=== PATIENT | male | born 1985 | race Caucasian/White ===

== ENCOUNTER 2017-04-18 09:27 | Emergency (ER) | payer MEDICAID ==
[~2017-04-18] VITALS: Ht 177.8 cm; Wt 78.0 kg
[~2017-04-18 09:27] MED LIST: ABAC1TAB14 PO; BUPR150T6 PO; HYDR50CA2 PO; RISP4TAB2 PO; TRAZ100T15 PO
[2017-04-18 09:40] VITALS: BP 128/88
[2017-04-18] MEDS ORDERED: CEFTRIAXONE 250 MG IM ONE (11:00)
[2017-04-18] MEDS ORDERED: AZITHROMYCIN 500 MG TABLET PO ONE (11:00)
[2017-04-18] MEDS ORDERED: CEFTRIAXONE 250 MG ONE (11:10)
[2017-04-18] MEDS ORDERED: LIDOCAINE 1%, 20ML ONE (11:11)
[2017-04-18] MEDS ORDERED: AZITHROMYCIN 500 MG TABLET ONE (11:11)
== END 2017-04-18 11:45 | disposition home or self-care (01) ==
LOC: ED 10:06
DX: N34.1 Nonspecific urethritis (principal); R05 Cough
CPT/HCPCS: 81001; 87086; 96372; 99284; J0696; 87491; 87591

== ENCOUNTER 2017-09-05 14:28 | Emergency (ER) | payer MEDICAID ==
[~2017-09-05] VITALS: Ht 177.8 cm; Wt 77.2 kg
[2017-09-05 14:30] VITALS: BP 125/92
== END 2017-09-05 15:05 | disposition home or self-care (01) ==
LOC: ED 14:50
DX: L02.413 Cutaneous abscess of right upper limb (principal); F15.10 Other stimulant abuse, uncomplicated
CPT/HCPCS: 10060

== ENCOUNTER 2018-07-31 16:24 | Emergency (ER) | payer MEDICAID ==
[~2018-07-31] VITALS: Ht 177.8 cm; Wt 82.2 kg
[~2018-07-31 16:24] MED LIST changes: +TRAZ-137 PO; -TRAZ100T15 PO
[2018-07-31 17:14] VITALS: BP 145/103
== END 2018-07-31 17:17 | disposition home or self-care (01) ==
LOC: ED 16:45
DX: K04.7 Periapical abscess without sinus (principal); I10 Essential (primary) hypertension; Z21 Asymptomatic human immunodeficiency virus [HIV] infection status; F17.200 Nicotine dependence, unspecified, uncomplicated
CPT/HCPCS: 99283

== ENCOUNTER 2019-06-19 22:51 | Emergency (ER) | payer MEDICAID ==
[~2019-06-19] VITALS: Ht 177.8 cm; Wt 80.7 kg
[2019-06-19 22:58] VITALS: BP 143/100
[2019-06-19] MEDS ORDERED: AZITHROMYCIN 500 MG TABLET ONE (23:23)
[2019-06-19] MEDS ORDERED: CEFTRIAXONE 250 MG ONE (23:23)
[2019-06-19] MEDS ORDERED: CEFTRIAXONE 250 MG IM ONE (23:30)
[2019-06-19] MEDS ORDERED: AZITHROMYCIN 500 MG TABLET PO ONE (23:30)
== END 2019-06-19 23:33 | disposition home or self-care (01) ==
LOC: ED 23:29
DX: A56.01 Chlamydial cystitis and urethritis (principal); A54.01 Gonococcal cystitis and urethritis, unspecified; F15.10 Other stimulant abuse, uncomplicated; F17.210 Nicotine dependence, cigarettes, uncomplicated
CPT/HCPCS: 87491; 87591; 96372; 99283; J0696

== ENCOUNTER 2020-01-28 14:06 | Emergency (ER) | payer MEDICAID ==
[~2020-01-28] VITALS: Ht 177.8 cm; Wt 93.3 kg
[~2020-01-28 14:06] MED LIST changes: -TRAZ-137 PO; +TRAZ-175 PO
[2020-01-28 14:09] VITALS: BP 139/96
--- NOTE | 2020-01-28 14:33 | NUR ---
LEFT ANKLE SWELLING AND PAIN FOR 2 WEEKS, UNKNOWN ETIOLOGY
[2020-01-28 14:52] LABS: BASOPHILS # (AUTO) 0.07 x10^3/uL (0-0.1); BASOPHILS % (AUTO) 1 % (0-1); EOSINOPHILS # (AUTO) 0.07 x10^3/uL (0-0.4); EOSINOPHILS % (AUTO) 1 % (1-7); LYMPHOCYTES # (AUTO) 2.94 x10^3/uL (1-3.4); LYMPHOCYTES % (AUTO) 31 % (22-44); MD NO; MEAN CORPUSCULAR HEMOGLOBIN 31.3 pg (27.5-34.5); MEAN CORPUSCULAR HGB CONC 33.6 g/dL (33.2-36.2); MEAN CORPUSCULAR VOLUME 93.2 fL (81-97); MEAN PLATELET VOLUME 6.7 fL (7.4-10.4); MONOCYTES # (AUTO) 0.65 x10^3/uL (0.2-0.8); MONOCYTES % (AUTO) 7 % (2-9); NEUTROPHILS # (AUTO) 5.73 x10^3/uL (1.8-6.8); NEUTROPHILS % (AUTO) 61 % (42-75); PLATELET COUNT 336 x10^3/uL (130-400); RED BLOOD COUNT 5.09 x10^6/uL (4.38-5.82); RED CELL DISTRIBUTION WIDTH 14.6 % (9.4-14.8)
[2020-01-28] MEDS ORDERED: KETOROLAC 30 MG/1 ML IM ONE (15:00)
[2020-01-28] MEDS ORDERED: KETOROLAC 30 MG/1 ML ONE (15:12)
== END 2020-01-28 15:35 ==
LOC: ED 15:26
DX: M65.872 Other synovitis and tenosynovitis, left ankle and foot (principal); F17.200 Nicotine dependence, unspecified, uncomplicated; Z21 Asymptomatic human immunodeficiency virus [HIV] infection status
CPT/HCPCS: 36415; 73610; 84550; 85025; 96372; 99284; J1885

== ENCOUNTER 2020-04-22 13:54 | Emergency (ER) | payer MEDICAID ==
[~2020-04-22] VITALS: Ht 177.8 cm; Wt 85.3 kg
[2020-04-22 14:31] VITALS: BP 129/72
--- NOTE | 2020-04-22 15:23 | NUR ---
Jordon arguello in [facility] - 04/22/20 at 1539 by BETY PT BACK FROM IR,
--- NOTE | 2020-04-22 15:39 | NUR ---
pt left w out dc papers. saw pt
== END 2020-04-22 15:40 | disposition home or self-care (01) ==
LOC: ED 15:10
DX: L02.414 Cutaneous abscess of left upper limb (principal); I10 Essential (primary) hypertension
CPT/HCPCS: 99281

== ENCOUNTER 2020-09-10 22:21 | Emergency (ER) | payer MEDICAID ==
[~2020-09-10] VITALS: Ht 177.8 cm; Wt 83.0 kg
[2020-09-10 22:35] VITALS: BP 132/92
--- NOTE | 2020-09-10 22:40 | NUR ---
pt ambulates to room 2, changes to gown. right ac area with small under the skin nodule, no redness at that location seen however redness and fresh track nascimento to other ac veins. reports pain. says he is worried about mrsa because he has been injecting meth with dirty needles. hx hiv on tx.
[2020-09-10] MEDS ORDERED: DIPH,PERTUSS(ACELL),TET VAC/PF 0.5 ML IM-VACC ONE ×2 (23:00→23:22)
== END 2020-09-10 23:51 | disposition home or self-care (01) ==
LOC: ED 23:03
DX: I80.8 Phlebitis and thrombophlebitis of other sites (principal); G89.11 Acute pain due to trauma; M79.631 Pain in right forearm; F10.10 Alcohol abuse, uncomplicated; F15.10 Other stimulant abuse, uncomplicated; I10 Essential (primary) hypertension; Y90.9 Presence of alcohol in blood, level not specified
CPT/HCPCS: 90471; 90715; 99284

== ENCOUNTER 2021-01-19 15:04 | Emergency (ER) | payer MEDICAID ==
[~2021-01-19] VITALS: Ht 177.8 cm; Wt 79.0 kg
[~2021-01-19 15:04] MED LIST changes: +BUPR150T22 PO; -BUPR150T6 PO; -RISP4TAB2 PO; +RISP4TAB66 PO
--- NOTE | 2021-01-19 15:40 | NUR ---
PT WALKED FROM HOME. RASHES ON NOSE, HAND AND LEG STARTED ABOUT A MONTH AGO. PT STATED HE BELIEVED HE MIGHT HAVE STAPH INFECTION WHICH LEAD TO HIM COMING TO ED.
[2021-01-19 16:18] VITALS: BP 154/107
== END 2021-01-19 16:29 | disposition home or self-care (01) ==
LOC: ED 16:00
DX: L01.01 Non-bullous impetigo (principal); L02.414 Cutaneous abscess of left upper limb; L02.413 Cutaneous abscess of right upper limb; L02.416 Cutaneous abscess of left lower limb; L02.415 Cutaneous abscess of right lower limb; I10 Essential (primary) hypertension
CPT/HCPCS: 99283

== ENCOUNTER 2021-04-08 10:55 | Inpatient (IN) | payer MEDICAID ==
[~2021-04-08] VITALS: Ht 177.8 cm; Wt 81.4 kg
--- NOTE | 2021-04-08 11:42 | NUR ---
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
[2021-04-08 12:07] LABS: MICROSCOPIC INDICATED
[2021-04-08] MEDS ORDERED: ONDANSETRON 2MG/ML, 2ML ONE (12:12)
[2021-04-08] MEDS ORDERED: MORPHINE SULFATE 4 MG/ML, 1ML ONE (12:12)
[2021-04-08] MEDS ORDERED: LORazepam 2 MG/ML, 1ML ONE (12:13)
--- NOTE | 2021-04-08 12:26 | NUR ---
PT REFUSING IV AND MEDICTIONS. PT STATES HE JUST WANTS TO FIND OUT IF HIS LIVER IS OK. MADE AWARE.
[2021-04-08] MEDS ORDERED: LORazepam 2 MG/ML, 1ML IVPush ONE (12:30)
[2021-04-08] MEDS ORDERED: SODIUM CHLORIDE FLUSH 10ML SYR IVF ONE (12:30)
[2021-04-08] MEDS ORDERED: SODIUM CHLORIDE 0.9% 1,000ML IVBOLUS ONE ×3 (12:30→14:30)
[2021-04-08] MEDS ORDERED: ONDANSETRON 2MG/ML, 2ML IVPush ONE (12:30)
[2021-04-08] MEDS ORDERED: MORPHINE SULFATE 4 MG/ML, 1ML IVPush PRN ×2 (12:30→14:00)
[2021-04-08 12:37] LABS: BASOPHILS % (AUTO) 0 % (0-1); EOSINOPHILS % (AUTO) 0 % (1-7); LYMPHOCYTES % (AUTO) 7 % (22-44); MEAN CORPUSCULAR HEMOGLOBIN 34.2 pg (27.5-34.5); MEAN CORPUSCULAR HGB CONC 34.4 g/dL (33.2-36.2); MEAN PLATELET VOLUME 6.5 fL (7.4-10.4); MONOCYTES % (AUTO) 11 % (2-9); NEUTROPHILS % (AUTO) 81 % (42-75); PLATELET COUNT 266 x10^3/uL (130-400); RED BLOOD COUNT 4.98 x10^6/uL (4.38-5.82); RED CELL DISTRIBUTION WIDTH 14.5 % (9.4-14.8)
[2021-04-08 12:49] LABS: ALANINE AMINOTRANSFERASE 105 U/L (12-78); ALBUMIN 3.9 g/dL (3.4-5.0); ANION GAP 4 mmol/L (5-15); CALCIUM 9.5 mg/dL (8.5-10.1); CHLORIDE 103 mmol/L (98-107); CREATININE 0.97 mg/dL (0.7-1.3)
[2021-04-08 12:51] LABS: ALKALINE PHOSPHATASE 101 U/L (45-117); BILIRUBIN,TOTAL 0.6 mg/dL (0.2-1.0); TOTAL PROTEIN 7.7 g/dL (6.4-8.2)
--- NOTE | 2021-04-08 13:02 | NUR ---
PATIENT AMBULATED TO BATHROOM WITH STEADY GAIT.
[2021-04-08] MEDS ORDERED: CEFTRIAXONE 1,000 MG ONE (13:10)
[2021-04-08] MEDS ORDERED: AZITHROMYCIN 250 MG TABLET ONE (13:11)
[2021-04-08 13:15] LABS: MD SCAN
--- NOTE | 2021-04-08 13:20 | NUR ---
PATIENT REQUESTING TO GO TO HIS CAR AND GRAB "SOME STUFF" AND MOVE HIS CAR. INFORMED PATIENT HE CANNOT LEAVE THE ED HE IS BEING ADMITTED TO THE HOSPITAL FOR SAFETY REASONS. PATIENT WALKED BACK TO HIS ROOM.
[2021-04-08] MEDS ORDERED: CEFTRIAXONE 1,000 MG IM ONE ×2 (13:30)
[2021-04-08] MEDS ORDERED: AZITHROMYCIN 500 MG TABLET PO ONE (13:30)
[2021-04-08] MEDS ORDERED: POLYETHYLENE GLYCOL 17 GM PACKET PO PRN (14:00)
[2021-04-08] MEDS ORDERED: PHARMACY INSTRUCTION MC PRN (14:00)
[2021-04-08] MEDS ORDERED: OXYcodone IR 5MG TABLET PO PRN (14:00)
[2021-04-08] MEDS: SODIUM CHLORIDE 0.9% 1,000 ML IV SCH (14:00)
[2021-04-08] MEDS ORDERED: VANCOMYCIN PER PHARMACY MC PRN (14:00)
[2021-04-08] MEDS ORDERED: VANCOMYCIN PMX 1GM/200ML 200 ML IV ONE (14:00)
[2021-04-08] MEDS ORDERED: ONDANSETRON 2MG/ML, 2ML IVPush PRN (14:00)
--- NOTE | 2021-04-08 14:03 | NUR ---
PATIENT CAME UP TO NURSING STATION FULLY DRESSED AND STATED HE WENT OUT TO HIS CAR AND MOVED IT. ER CARPENTER MAINTENANCE OKAY WITH PATIENT GOING BACK TO HIS ROOM AND NOT CHECKING BACK IN. PATIENT WALKED BACK TO ROOM, CONNECTED TO ALL MONITORS. DR. GUPTA AT BEDSIDE TO DISCUSS ADMISSION.
--- NOTE | 2021-04-08 14:21 | NUR ---
US TECH AT BEDSIDE. 20 GAUGE IV STARTED LEFT AC, SECOND SET OF BLOOD CULTURES DRAWN, LABELLED AND SENT TO LAB.
[2021-04-08] MEDS ORDERED: ENOXAPARIN 40 MG/0.4 ML ONE (14:27)
[2021-04-08] MEDS: PIPERACILLIN/TAZO 3.375 GM in DEXTROSE 5% 50 ML IV SCH ×2 (14:30→20:47)
[2021-04-08] MEDS: ENOXAPARIN 40 MG/0.4 ML SQ SCH (14:30)
[2021-04-08] MEDS ORDERED: LORazepam 2 MG/ML, 1ML IV PRN ×4 (15:00)
--- NOTE | 2021-04-08 15:34 | NUR ---
IV VANCOMYCIN REQUESTED FROM PHARMACY.
[2021-04-08] MEDS ORDERED: NICOTINE 21 MG/24 HR PATCH.TD24 ONE (15:49)
--- NOTE | 2021-04-08 15:54 | NUR ---
REPORT CALLED TO EMELIA BURNHAM FOR MEDICAL TELEMETRY.
[2021-04-08] MEDS: NICOTINE 21 MG/24 HR PATCH.TD24 TD SCH (15:58)
[2021-04-08] MEDS ORDERED: VANCOMYCIN 2,000 MG in SODIUM CHLORIDE 0.9% 500 ML IV ONE (16:00)
[2021-04-08] MEDS ORDERED: CHLORDIAZEPOXIDE 25 MG CAPSULE ONE (16:18)
[2021-04-08] MEDS: CHLORDIAZEPOXIDE 25 MG CAPSULE PO SCH ×2 (16:21→20:48)
--- NOTE | 2021-04-08 16:21 | NUR ---
FIRST NS BOLUS STILL RUNNING, IV IS IN BEND OF PATIENT'S ARM. EDUCATED PATIENT ON KEEPING ARM STRAIGHT SO FLUIDS CAN RUN.
[2021-04-08 16:49] VITALS: BP 152/109
--- NOTE | 2021-04-08 16:49 | NUR ---
PATIENT TRANSFERRED TO MEDICAL TELEMETRY VIA GURNEY IN STABLE CONDITION WITH BAR PORTER. ALL PATIENT BELONGINGS TAKEN TO FLOOR WITH PATIENT.
[2021-04-08] MEDS ORDERED: PHARMACOKINETIC MONITORING MC PRN (17:30)
[2021-04-08] MEDS ORDERED: PHARMACOKINETIC CONSULTATION MC ONE (17:30)
[2021-04-08] MEDS: LORazepam 2 MG/ML, 1ML IV PRN (18:37)
[2021-04-08 19:43] VITALS: BP 147/96
[2021-04-09 02:25] VITALS: BP 143/102
[2021-04-09] MEDS: PIPERACILLIN/TAZO 3.375 GM in DEXTROSE 5% 50 ML IV SCH ×4 (02:25→19:46)
[2021-04-09] MEDS: VANCOMYCIN 1,600 MG in SODIUM CHLORIDE 0.9% 250 ML IV SCH ×2 (04:03→16:36)
[2021-04-09] MEDS: SODIUM CHLORIDE 0.9% 1,000 ML IV SCH ×3 (04:08→22:16)
[2021-04-09 05:24] LABS: BASOPHILS % (AUTO) 0 % (0-1); EOSINOPHILS % (AUTO) 1 % (1-7); LYMPHOCYTES % (AUTO) 25 % (22-44); MEAN CORPUSCULAR HEMOGLOBIN 34.2 pg (27.5-34.5); MEAN CORPUSCULAR HGB CONC 34.4 g/dL (33.2-36.2); MONOCYTES % (AUTO) 10 % (2-9); NEUTROPHILS % (AUTO) 64 % (42-75); PLATELET COUNT 229 x10^3/uL (130-400); RED BLOOD COUNT 4.51 x10^6/uL (4.38-5.82); RED CELL DISTRIBUTION WIDTH 14.1 % (9.4-14.8)
[2021-04-09 05:29] LABS: CHLORIDE 107 mmol/L (98-107)
[2021-04-09 05:41] LABS: MD NO
[2021-04-09 06:01] LABS: ALANINE AMINOTRANSFERASE 82 U/L (12-78); ALKALINE PHOSPHATASE 93 U/L (45-117); ANION GAP 9 mmol/L (5-15); CALCIUM 8.4 mg/dL (8.5-10.1); CHOLESTEROL, TOTAL 140 mg/dL (140-239); HDL CHOL % 51 % (26-37); HDL CHOLESTEROL (DIRECT) 71 mg/dL (40-60); LDL CHOLESTEROL,CALCULATED 49 mg/dL (54-169); LDL/HDL RATIO 0.7 (0.5-3.0); TOTAL PROTEIN 6.2 g/dL (6.4-8.2); TRIGLYCERIDES 98 mg/dL (50-200); VLDL CHOLESTEROL 20 mg/dL (0-25)
[2021-04-09 07:03] VITALS: BP 132/87
[2021-04-09] MEDS ORDERED: MAGNESIUM SULFATE PMX 2GM/50ML 50 ML IV ONE (09:00)
[2021-04-09] MEDS: THIAMINE 200 MG in SODIUM CHLORIDE 0.9% 50 ML IV SCH (10:04)
[2021-04-09] MEDS: NICOTINE 21 MG/24 HR PATCH.TD24 TD SCH (10:04)
[2021-04-09] MEDS: CYANOCOBALAMIN 1,000 MCG/ML, 1ML IM SCH (10:05)
[2021-04-09] MEDS: SENNA/DOCUSATE TABLET PO SCH (10:05)
[2021-04-09] MEDS: CHLORDIAZEPOXIDE 25 MG CAPSULE PO SCH (10:05)
[2021-04-09 12:34] VITALS: BP 136/92
[2021-04-09] MEDS: ENOXAPARIN 40 MG/0.4 ML SQ SCH (14:00)
[2021-04-09] MEDS: LORazepam 2 MG/ML, 1ML IV PRN ×2 (14:56→18:48)
[2021-04-09 18:43] VITALS: BP 155/102
[2021-04-09 21:20] VITALS: BP 149/110
[2021-04-09 22:50] VITALS: BP 141/89
[2021-04-09] MEDS ORDERED: LISINOPRIL 10 MG TABLET PO ONE (23:00)
[2021-04-10 00:16] VITALS: BP 143/96
[2021-04-10] MEDS: LORazepam 2 MG/ML, 1ML IV PRN (00:57)
[2021-04-10] MEDS ORDERED: OMEPRAZOLE 20 MG CAPSULE.DR PO ONE (01:00)
[2021-04-10] MEDS: PIPERACILLIN/TAZO 3.375 GM in DEXTROSE 5% 50 ML IV SCH ×3 (01:56→13:28)
[2021-04-10 03:34] LABS: BASOPHILS % (AUTO) 0 % (0-1); EOSINOPHILS % (AUTO) 3 % (1-7); LYMPHOCYTES % (AUTO) 26 % (22-44); MEAN CORPUSCULAR HEMOGLOBIN 34.4 pg (27.5-34.5); MEAN CORPUSCULAR HGB CONC 34.7 g/dL (33.2-36.2); MEAN PLATELET VOLUME 6.9 fL (7.4-10.4); MONOCYTES % (AUTO) 13 % (2-9); NEUTROPHILS % (AUTO) 58 % (42-75); PLATELET COUNT 240 x10^3/uL (130-400); RED BLOOD COUNT 4.58 x10^6/uL (4.38-5.82); RED CELL DISTRIBUTION WIDTH 13.8 % (9.4-14.8)
[2021-04-10 03:37] LABS: MD NO
[2021-04-10 03:39] LABS: ALANINE AMINOTRANSFERASE 78 U/L (12-78); ALBUMIN 2.9 g/dL (3.4-5.0); ANION GAP 7 mmol/L (5-15); CALCIUM 8.4 mg/dL (8.5-10.1); CHLORIDE 111 mmol/L (98-107); CREATININE 1.09 mg/dL (0.7-1.3)
[2021-04-10 03:41] LABS: ALKALINE PHOSPHATASE 97 U/L (45-117); BILIRUBIN,TOTAL 0.5 mg/dL (0.2-1.0); TOTAL PROTEIN 6.2 g/dL (6.4-8.2); VANCOMYCIN,TROUGH 17.1 mcg/mL (5.0-10.0)
[2021-04-10] MEDS: VANCOMYCIN 1,600 MG in SODIUM CHLORIDE 0.9% 250 ML IV SCH (04:15)
[2021-04-10] MEDS: SODIUM CHLORIDE 0.9% 1,000 ML IV SCH (06:11)
[2021-04-10 07:07] VITALS: BP 123/81
[2021-04-10] MEDS: SENNA/DOCUSATE TABLET PO SCH (10:24)
[2021-04-10] MEDS: THIAMINE 200 MG in SODIUM CHLORIDE 0.9% 50 ML IV SCH (10:24)
[2021-04-10] MEDS: NICOTINE 21 MG/24 HR PATCH.TD24 TD SCH (10:27)
[2021-04-10 12:36] VITALS: BP 132/92
[2021-04-10] MEDS: CYANOCOBALAMIN 1,000 MCG/ML, 1ML IM SCH (13:30)
[2021-04-10] MEDS ORDERED: THIA50TA4 PO (14:47)
[2021-04-10] MEDS ORDERED: FOLI1TAB32 PO (14:47)
[2021-04-10] MEDS ORDERED: MULT-449 PO (14:47)
[2021-04-10] MEDS ORDERED: CYAN500L2 PO (14:47)
[2021-04-10] MEDS ORDERED: AZIT500T10 PO (14:47)
[2021-04-10] MEDS ORDERED: LACT1TAB13 PO (14:47)
[2021-04-11] MEDS ORDERED: AZITHROMYCIN 500 MG TABLET PO SCH (09:00)
== END 2021-04-10 15:14 | disposition home or self-care (01) | DRG 871 ==
LOC: ED 11:08 → SUATTDRO 13:43 → EDIP 13:45 → 4EST 16:40
PROVIDERS: ADMIT Internal Medicine; ATTEND Internal Medicine
DX: A41.9 Sepsis, unspecified organism (principal); K85.20 Alcohol induced acute pancreatitis without necrosis or infection; J18.1 Lobar pneumonia, unspecified organism; E87.1 Hypo-osmolality and hyponatremia; F10.239 Alcohol dependence with withdrawal, unspecified; N39.0 Urinary tract infection, site not specified; F15.20 Other stimulant dependence, uncomplicated; D75.89 Other specified diseases of blood and blood-forming organs; E53.8 Deficiency of other specified B group vitamins; E83.42 Hypomagnesemia; Z20.822 Contact with and (suspected) exposure to COVID-19; F17.210 Nicotine dependence, cigarettes, uncomplicated; K70.10 Alcoholic hepatitis without ascites; K76.0 Fatty (change of) liver, not elsewhere classified; K21.9 Gastro-esophageal reflux disease without esophagitis; F32.9 Major depressive disorder, single episode, unspecified
CPT/HCPCS: 36415; 74022; 76700; 80053; 80061; 80202; 81001; 82150; 82607; 83605; 83690; 83735; 84100; 84443; 85025; 87040; 87086; 93306; 93356; 96372; 99285; G0378; J0696; J1650; J2543; J3370; J3411; U0005; J2060; J3420; J3475; J7030; J7040; J7050; U0003

== ENCOUNTER 2021-04-29 20:25 | Emergency (ER) | payer MEDICAID ==
[~2021-04-29] VITALS: Ht 177.8 cm; Wt 81.3 kg
[~2021-04-29 20:25] MED LIST changes: +AZIT500T10 PO; +CYAN500L2 PO; +FOLI1TAB32 PO; +LACT1TAB13 PO; +MULT-449 PO; +THIA50TA4 PO
[2021-04-29 20:28] VITALS: BP 168/121
[2021-04-29 21:13] LABS: MEAN CORPUSCULAR HEMOGLOBIN 34.7 pg (27.5-34.5); MEAN CORPUSCULAR HGB CONC 35.1 g/dL (33.2-36.2); MEAN PLATELET VOLUME 6.4 fL (7.4-10.4); PLATELET COUNT 291 x10^3/uL (130-400); RED BLOOD COUNT 4.71 x10^6/uL (4.38-5.82); RED CELL DISTRIBUTION WIDTH 13.8 % (9.4-14.8)
[2021-04-29 21:25] LABS: ALANINE AMINOTRANSFERASE 105 U/L (12-78); ALBUMIN 3.9 g/dL (3.4-5.0); ANION GAP 5 mmol/L (5-15); CALCIUM 8.6 mg/dL (8.5-10.1); CHLORIDE 108 mmol/L (98-107); CREATININE 1.06 mg/dL (0.7-1.3)
[2021-04-29 21:27] LABS: ALKALINE PHOSPHATASE 94 U/L (45-117); BILIRUBIN,TOTAL 0.3 mg/dL (0.2-1.0); TOTAL PROTEIN 7.6 g/dL (6.4-8.2)
[2021-04-29 21:50] LABS: BASOS#(MANUAL) 0.04 x10^3/uL (0-0.1); BASOS% (MANUAL) 1 % (0-1); EOS#(MANUAL) 0.09 x10^3/uL (0.0-0.4); EOS% (MANUAL) 2 % (1-7); LYMPH#(MANUAL) 1.36 x10^3/uL (1-3.4); LYMPHS% (MANUAL) 31 % (22-44); MONOS#(MANUAL) 0.18 x10^3/uL (0.3-2.7); MONOS% (MANUAL) 4 % (2-9); REACTIVE LYMPHS # (MANUAL) 0.53 x10^3/uL (0-0); REACTIVE LYMPHS % (MANUAL) 12 % (0-0); SEGS% (MANUAL) 50 % (42-75)
[2021-04-29 21:57] LABS: <PLATELET ESTIMATE> ADEQUATE
[2021-04-29 21:58] LABS: <PLT MORPHOLOGY> NORMAL PLT MORPH
[2021-04-29 23:38] LABS: MICROSCOPIC NOT IND
--- NOTE | 2021-04-30 01:30 | NUR ---
CALLED IN THE LOBBY, NO ANSWER.
--- NOTE | 2021-04-30 01:45 | NUR ---
CALLED IN THE LOBBY 3RD TIME. NO ANSWER.
== END 2021-04-30 01:47 | disposition left against medical advice (07) ==
LOC: ED 22:43
DX: R05 Cough (principal); R10.9 Unspecified abdominal pain
CPT/HCPCS: 36415; 71045; 80053; 81003; 83690; 85025; 99284

== ENCOUNTER 2021-05-06 19:24 | Emergency (ER) | payer MEDICAID ==
[~2021-05-06] VITALS: Ht 177.8 cm; Wt 80.0 kg
[2021-05-06 19:36] VITALS: BP 125/95
--- NOTE | 2021-05-06 21:33 | NUR ---
[id number]
== END 2021-05-06 21:37 | disposition left against medical advice (07) ==
LOC: ED 19:45
DX: R10.9 Unspecified abdominal pain (principal); Z53.21 Procedure and treatment not carried out due to patient leaving prior to being seen by health care provider

== ENCOUNTER 2021-05-08 17:22 | Emergency (ER) | payer MEDICAID ==
[~2021-05-08] VITALS: Ht 177.8 cm; Wt 89.0 kg
--- NOTE | 2021-05-08 18:18 | NUR ---
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
--- NOTE | 2021-05-08 19:15 | NUR ---
PT TO ROOM FROM LOBBY
--- NOTE | 2021-05-08 19:51 | NUR ---
Requested urine, says can not go. Waiting for labs/cxr/ekg. Pt on bhupinder appears comfortable, friend at bedside.
--- NOTE | 2021-05-08 20:02 | NUR ---
Labs drawn and sent by lab, PCXR done.
[2021-05-08 20:07] LABS: BASOPHILS % (AUTO) 1 % (0-1); EOSINOPHILS % (AUTO) 1 % (1-7); LYMPHOCYTES % (AUTO) 56 % (22-44); MEAN CORPUSCULAR HGB CONC 34.2 g/dL (33.2-36.2); MEAN PLATELET VOLUME 6.6 fL (7.4-10.4); MONOCYTES % (AUTO) 10 % (2-9); NEUTROPHILS % (AUTO) 32 % (42-75); PLATELET COUNT 279 x10^3/uL (130-400); RED BLOOD COUNT 4.97 x10^6/uL (4.38-5.82); RED CELL DISTRIBUTION WIDTH 13.4 % (9.4-14.8)
[2021-05-08 20:20] LABS: ALANINE AMINOTRANSFERASE 121 U/L (12-78); ANION GAP 6 mmol/L (5-15); CALCIUM 9.1 mg/dL (8.5-10.1); CHLORIDE 110 mmol/L (98-107); CREATININE 1.05 mg/dL (0.7-1.3)
[2021-05-08 20:23] LABS: ALKALINE PHOSPHATASE 90 U/L (45-117); BILIRUBIN,TOTAL 0.4 mg/dL (0.2-1.0); TOTAL PROTEIN 7.7 g/dL (6.4-8.2)
--- NOTE | 2021-05-08 20:39 | NUR ---
Says can't provide urine.
[2021-05-08 20:55] VITALS: BP 135/78
== END 2021-05-08 20:57 | disposition home or self-care (01) ==
LOC: ED 20:57
DX: K29.20 Alcoholic gastritis without bleeding (principal); F10.129 Alcohol abuse with intoxication, unspecified; R10.84 Generalized abdominal pain; F15.129 Other stimulant abuse with intoxication, unspecified; Z72.9 Problem related to lifestyle, unspecified; I10 Essential (primary) hypertension; F17.200 Nicotine dependence, unspecified, uncomplicated; Y90.0 Blood alcohol level of less than 20 mg/100 ml
CPT/HCPCS: 36415; 71045; 80053; 80320; 83690; 85025; 93005; 99285; G0480

== ENCOUNTER 2021-07-26 10:51 | Emergency (ER) | payer MEDICAID ==
[~2021-07-26] VITALS: Ht 162.6 cm; Wt 80.0 kg
--- NOTE | 2021-07-26 12:02 | NUR ---
PT. IS A & O X 4 WITH A GCS OF 15. PT. IS PINK,WARM AND DRY. LUNGS ARE CTA. MM ARE PINK AND MOIST WITH PULSES +2 THROUGHOUT. PT.'S ABD. IS SOFT AND ROUND, NON-TENDER WITH BS + X 4 QUADS. PT. MOVES ALL EXTREMITIES WNL. PULSES ARE + 2 THROUGHOUT. PT. REPORTS HAVING ABD. PAIN X 2 WEEKS WHICH IS WORSE TODAY. PT. STATES HE DRINKS HEAVILY DAILY AND HAS A HX OF PANCREATITIS. PT.'S LAST DRINK WAS 2 HOURS AGO. IV ACCESS ESTABLISHED AND PT. HAS NS INFUSING AT 100CC/HR. LABS WERE OBTAINED. PT.'S 12 LEAD EKG WAS DONE AND THE CP MONITOR IS IN PLACE. VSS. SIDERAILS REMAIN UP X 2.
--- NOTE | 2021-07-26 13:09 | NUR ---
PT. IS RESTING WITHOUT CONCERNS, REMAINS MONITORED. VSS. AWAITING MD.
[2021-07-26 13:33] LABS: BASOPHILS % (AUTO) 1 % (0-1); EOSINOPHILS % (AUTO) 1 % (1-7); LYMPHOCYTES % (AUTO) 42 % (22-44); MEAN CORPUSCULAR HEMOGLOBIN 33.6 pg (27.5-34.5); MEAN CORPUSCULAR HGB CONC 33.9 g/dL (33.2-36.2); MEAN PLATELET VOLUME 6.8 fL (7.4-10.4); MONOCYTES % (AUTO) 13 % (2-9); NEUTROPHILS % (AUTO) 44 % (42-75); PLATELET COUNT 272 x10^3/uL (130-400); RED BLOOD COUNT 4.76 x10^6/uL (4.38-5.82); RED CELL DISTRIBUTION WIDTH 14.1 % (9.4-14.8)
[2021-07-26 13:41] LABS: ALANINE AMINOTRANSFERASE 106 U/L (12-78); ALBUMIN 3.6 g/dL (3.4-5.0); ANION GAP 9 mmol/L (5-15); CALCIUM 8.9 mg/dL (8.5-10.1); CHLORIDE 103 mmol/L (98-107); CREATININE 0.99 mg/dL (0.7-1.3)
[2021-07-26 13:43] LABS: ALKALINE PHOSPHATASE 103 U/L (45-117); BILIRUBIN,TOTAL 0.5 mg/dL (0.2-1.0); TOTAL PROTEIN 7.3 g/dL (6.4-8.2)
[2021-07-26] MEDS ORDERED: SODIUM CHLORIDE 0.9% 1,000ML IVBOLUS ONE (14:00)
[2021-07-26 14:26] VITALS: BP 121/81
--- NOTE | 2021-07-26 14:26 | NUR ---
DISCHARGE REVIEWED, SHOWS UNDERSTANDING
== END 2021-07-26 14:58 | disposition home or self-care (01) ==
LOC: ED 11:30
DX: K59.00 Constipation, unspecified (principal); R10.31 Right lower quadrant pain; R00.0 Tachycardia, unspecified; I10 Essential (primary) hypertension; F17.200 Nicotine dependence, unspecified, uncomplicated
CPT/HCPCS: 36415; 74021; 80053; 83690; 85025; 93005; 96360; 99285; J7030